=== PATIENT | male | born 1980 | race African-American/Black ===

== ENCOUNTER 2018-04-02 11:37 | Emergency (ER) | payer OTHER ==
[~2018-04-02] VITALS: Ht 170.2 cm; Wt 104.3 kg
[~2018-04-02 11:37] MED LIST: BACTROBAN NASAL1 GM NS; CLARINEX-D 241 EACH PO; DOXYCYCLINE 10100 M1 PO; FLONASE 0.05%50 MCG NS; FLONASE16 GM INH; NAPROSYN500 MG PO; NOHOMEMEDICATIONS; NORCO 5-325 TA1 EACH PO; PENICILLIN VK500 M1 PO; PENICILLIN VK500 MG PO; PROAIR HFA8.5 GM IH; ULTRAM 50MG TAB50 MG PO; ZPAK PO
[2018-04-02 12:56] LABS: HEMATOCRIT 37.9 % (42.0-52.0); HEMOGLOBIN 13.3 gm/dL (14.0-18.0); MCHC 35.2 g/dL (28.0-37.0); MCV 105.2 fL (80.0-100.0); RBC 3.6 mil/uL (4.50-6.00); RDW 18.7 % (10.5-14.5); WBC 5.9 thou/uL (4.0-11.0)
[2018-04-02 13:03] LABS: CALCIUM 9.4 mg/dL (8.5-10.1); CREATININE 0.9 mg/dL (0.7-1.3); POTASSIUM 4.4 mmol/L (3.5-5.1)
[2018-04-02] MEDS ORDERED: NORCO 10-325 T1 EACH PO (13:51)
[2018-04-02] MEDS ORDERED: ONDANSETRON HCL4 M2 PO (14:06)
[2018-04-02] MEDS ORDERED: NEOMYC-POLYM-DEX5 ML OTIC (14:07)
[2018-04-02 14:30] VITALS: BP 117/68
== END 2018-04-02 14:32 | disposition home or self-care (01) ==
LOC: ER 11:37
PROVIDERS: Physician Assistant
DX: M87.051 Idiopathic aseptic necrosis of right femur (principal); M87.052 Idiopathic aseptic necrosis of left femur; H60.91 Unspecified otitis externa, right ear; R11.2 Nausea with vomiting, unspecified; R19.7 Diarrhea, unspecified; I10 Essential (primary) hypertension; Z87.891 Personal history of nicotine dependence

== ENCOUNTER 2018-06-02 18:13 | Emergency (ER) | payer OTHER ==
[~2018-06-02] VITALS: Ht 177.8 cm; Wt 97.5 kg
[~2018-06-02 18:13] MED LIST changes: +NEOMYC-POLYM-DEX5 ML OTIC; +NORCO 10-325 T1 EACH PO; +ONDANSETRON HCL4 M2 PO
[2018-06-03 04:25] VITALS: BP 136/78
== END 2018-06-03 04:26 | disposition home or self-care (01) ==
LOC: ER 18:13
DX: F10.129 Alcohol abuse with intoxication, unspecified (principal); Z87.891 Personal history of nicotine dependence